=== PATIENT | female | born 1950 | race Caucasian/White ===

== ENCOUNTER 2023-04-02 12:52 | Emergency (ER) | payer MEDICAID, OTHER ==
[~2023-04-02] VITALS: Ht 157.5 cm; Wt 67.2 kg
[2023-04-02 13:15] VITALS: BP 155/77; PULSE 76; RESP 15; TEMP 99.5; O2SAT 97
[2023-04-02] MEDS ORDERED: BENZ200C52 MT (15:19)
== END 2023-04-02 15:58 | disposition home or self-care (01) ==
LOC: ER 13:39
DX: R05.9 Cough, unspecified (principal); I10 Essential (primary) hypertension; E78.00 Pure hypercholesterolemia, unspecified; Z88.0 Allergy status to penicillin; Z88.6 Allergy status to analgesic agent; Z98.890 Other specified postprocedural states; Z90.710 Acquired absence of both cervix and uterus
CPT/HCPCS: 71045; 99283